=== PATIENT | female | born 1965 | race Hispanic/Latino ===

== ENCOUNTER → 2024-12-05 | Day surgery (SDC) | payer OTHER ==
[~2024-12-05] MED LIST: ASPIRIN81 MG PO; BASAGLAR K100 UNIT/1 SC; CELEBREX100 MG PO; FENTANYL CITRATE/PF 100MCG/2 ML INJ ONE; GABAPENTIN100 MG PO; GLYBURIDE-METF1 EAC1 PO; METFORMIN HCL500 MG PO; METOCLOPRAMIDE HCL 10 MG/2ML VIAL ONE; OMEPRAZOLE40 MG PO; ONGLYZA5 MG PO; PRAVASTATIN SOD40 MG PO; PROPOFOL IV EMULSION 10 MG/ML 20 ML VIAL ONE; TRULICITY3 MG/0.5 M SC; ZESTRIL10 MG PO; vit D2 PO
[2024-12-05] MEDS: LACTATED RINGER'S 1,000 ML ONE (10:33)
[2024-12-05 11:20] VITALS: BP 123/71; PULSE 80; RESP 15; TEMP 97.6; O2SAT 96
== END | disposition home or self-care (01) ==
LOC: OR 08:47
PROVIDERS: ATTEND Internal Medicine Gastroenterology
DX: K29.50 Unspecified chronic gastritis without bleeding (principal); K31.7 Polyp of stomach and duodenum; K20.90 Esophagitis, unspecified without bleeding; K21.9 Gastro-esophageal reflux disease without esophagitis; I10 Essential (primary) hypertension; E11.9 Type 2 diabetes mellitus without complications; Z88.2 Allergy status to sulfonamides; Z79.82 Long term (current) use of aspirin; Z79.4 Long term (current) use of insulin; Z79.85 Long-term (current) use of injectable non-insulin antidiabetic drugs; Z79.84 Long term (current) use of oral hypoglycemic drugs; Z79.899 Other long term (current) drug therapy
CPT/HCPCS: 36415; 43239; 43251; 82948; J2470; J2704; J2765; J3010; J7121